=== PATIENT | female | born 1980 | race Caucasian/White ===

== ENCOUNTER → 2016-07-27 | Outpatient (CLI) | payer BC | LOC: MW.CHRC 16:18 | PROVIDERS: ATTEND Family Medicine | DX: R42 Dizziness and giddiness (principal) | CPT/HCPCS: 36415; 82607 ==

== ENCOUNTER 2017-04-26 08:12 | Day surgery (SDC) | payer BC ==
--- NOTE | 2017-04-26 08:55 | PCM.PREANE ---
Preanesthetic Assessment - Anesthesia/Transfusion/Family Hx Anesthesia History: Prior Anesthesia Without Reaction Family History of Anesthesia Reaction: No Transfusion History: No Prior Transfusion(s) Intubation History: Unknown - Review of Systems General: No Symptoms Pulmonary: No Symptoms Cardiovascular: No Symptoms Gastrointestinal: No Symptoms Neurological: No Symptoms Other: Reports: None - Physical Assessment O2 Sat by Pulse Oximetry: 96 Respiratory Rate: 16 Vital Signs: Last Vital Signs Temp 36.0 C 04/26/17 08:51 Pulse 86 04/26/17 08:51 Resp 16 04/26/17 08:51 BP 113/74 04/26/17 08:51 Pulse Ox 96 04/26/17 08:51 Height: 1.6 m Weight: 53.977 kg ASA Class: 1 Mental Status: Alert & Oriented x3 Airway Class: Mallampati = 1 Dentition: Reports: Normal Dentition Thyro-Mental Finger Breadths: 3 Mouth Opening Finger Breadths: 3 ROM/Head Extension: Full Lungs: Clear to Auscultation, Normal Respiratory Effort Cardiovascular: Regular Rate, Regular Rhythm - Lab Values: Laboratory Last Values Urine HCG, Qual NEGATIVE (NEGATIVE) 04/26/17 08:13 - Allergies Allergies/Adverse Reactions: Allergies Allergy/AdvReac Type Severity Reaction Status Date / Time No Known Allergies Allergy Verified 04/23/17 11:07 - Blood Blood Available: No - Anesthesia Plan Pre-Op Medication Ordered: None - Acknowledgements Anesthesia Type Planned: MAC (possible general anesthesia ) Pt an Appropriate Candidate for the Planned Anesthesia: Yes Alternatives and Risks of Anesthesia Discussed w Pt/Guardian: Yes Pt/Guardian Understands and Agrees with Anesthesia Plan: Yes PreAnesthesia Questionnaire HEENT History: Reports: None Other HEENT History: wears glasses Cardiovascular History: Reports: None Respiratory History: Reports: None Gastrointestinal History: Reports: None Genitourinary History: Reports: None 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: , 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 Neurological History: Reports: Other (See Below) Other Neuro History: hx of motion sickness - Infectious Disease History Infectious Disease History: Reports: Chicken Pox, Measles - Past Surgical History Head Surgeries/Procedures: Reports: None Female Surgical History: Reports: Breast Implant - SUBSTANCE USE Smoking Status *Q: Never Smoker Tobacco Use Within Last Twelve Months: No Second Hand Smoke Exposure: No Recreational Drug Use History: No - HOME MEDS Home Medications: Home Meds Vit W-Ca,Fe,FA(<1 mg) [ Vitamins] 1 tab PO DAILY 04/23/17 [ History] - CURRENT (IN HOUSE) MEDS Current Meds: Current Medications Cefazolin Sodium/Dextrose 1 gm (/ Premix) 50 mls @ 100 mls/hr IV ONETIME ONE Stop: 04/26/17 09:29 Lactated Ringer's (Ringers, Lactated) 1,000 mls @ 125 mls/hr IV ASDIRECTED [facility] Last Admin: 04/26/17 08:49 Dose: 125 mls/hr
[2017-04-26] MEDS ORDERED: ceFAZolin 1 GM in Premix Bag 1 BAG IV ONE (09:00)
[2017-04-26] MEDS ORDERED: Propofol 200 MG/20 ML SDV ONE ×2 (09:08→10:05)
[2017-04-26] MEDS ORDERED: Midazolam 1 MG/ML 2 ML SDV ONE (09:08)
[2017-04-26] MEDS ORDERED: fentaNYL 100 MCG/2 ML SDV ONE (09:08)
[2017-04-26] MEDS ORDERED: Ondansetron 4 MG/2 ML SDV ONE (09:08)
[2017-04-26] MEDS ORDERED: Lidocaine 2% 5 ML SDV ONE (09:08)
[2017-04-26] MEDS ORDERED: Bupivacaine 0.5% 10 ML SDV ONE (09:21)
[2017-04-26] MEDS ORDERED: Scopolamine 1.5 MG Transdermal Patch TRDERM PRN (09:21)
[2017-04-26] MEDS ORDERED: Lactated Ringers 1,000 ML IV SCH (09:30)
[2017-04-26] MEDS ORDERED: Lidocaine 1% 20 ML MDV ONE (09:37)
[2017-04-26] MEDS ORDERED: fentaNYL 100 MCG/2 ML SDV IVPUSH PRN (09:53)
--- NOTE | 2017-04-26 10:09 | PN ---
PREOPERATIVE PROGRESS NOTE. SURGERY DATE: April 26, 2017. SURGEON: Radames Oliver DPM. PREOPERATIVE DIAGNOSIS: Cyst, right foot. PLANNED PROCEDURE: Excision of cyst, right foot. Consent is signed and in the chart. ANESTHESIA: MAC with local. The patient confirms n.p.o. since midnight. History and physical completed by Dr. Red with no contraindications to surgery. PAST MEDICAL HISTORY: No allergies. Denies any medical problems. SURGICAL HISTORY: History of breast surgery for enlargement. ACTIVE PROBLEMS: Blurred vision right eye, chronic fatigue, dizziness, dysuria, elevated vitamin B12 level, hair loss, hypotension, history of miscarriage, strep pharyngitis, unilateral headache, urinary tract infection and yeast vaginitis. LABS: White blood cell 8.55, red blood cell 4.62, hemoglobin 14.7, hematocrit 41.7, platelets 240. Sodium 137, potassium 4.2, chloride 103, CO2 was 24, random glucose 88, BUN 20, creatinine 0.8, calcium 9.6. The patient presents for excision of cyst surgery today. No contraindications to surgery noted. No guarantees given or implied. GENNY / MACO /[id number] MTDSapphire
[2017-04-26] MEDS ORDERED: Ketorolac 30 MG/ML SDV ONE (10:13)
[2017-04-26] MEDS ORDERED: Acetaminophen/HYDROcodone 325-5 MG Tab PO PRN (11:13)
--- NOTE | 2017-04-26 11:18 | PCM.POSTAN ---
POST ANESTHESIA ASSESSMENT - MENTAL STATUS Mental Status: Alert, Oriented - RESPIRATORY Respiratory Status: Respiratory Rate WNL, Airway Patent, O2 Saturation Stable - CARDIOVASCULAR CV Status: Pulse Rate WNL, Blood Pressure Stable - GASTROINTESTINAL GI Status: No Symptoms - PAIN Pain Score: 0 - POST OP HYDRATION Hydration Status: Adequate & Stable
--- NOTE | 2017-04-26 11:19 | PCM.OPNOTE ---
- General Post-Op/Procedure Note Date of Surgery/Procedure: 04/26/17 Operative Procedure(s): excision of cyst right foot Findings: consistent with diagnosis Pre Op Diagnosis: cyst right foot Post-Op Diagnosis: cyst right foot Anesthesia Technique: Local, MAC Primary Surgeon: Radames Oliver Pathology: cyst EBL in mLs: 2 Complications: none Condition: Good Free Text/Narrative:: materials: 4-0 vicryl, 5-0 monocryl injectables: 10 ml of 1:1 mixture of 0.5% marcaine and 1% lidocaine
[2017-04-26 14:00] VITALS: BP 107/66
--- NOTE | 2017-04-26 22:33 | OR ---
SURGEON: Radames Oliver DPM DATE OF PROCEDURE: 04/26/2017 PREOPERATIVE DIAGNOSIS: Cyst on the right foot. POSTOPERATIVE DIAGNOSIS: Cyst on the right foot. PROCEDURE: Excision of cyst, right foot. ANESTHESIA: MAC plus local anesthesia consisting of a 1:1 mixture of 0.5% Marcaine plain mixed with 1% lidocaine plain, 7 mL of which was injected prior to beginning of the procedure and the remaining 3 mL in the syringe was injected at the conclusion of the procedure. MATERIALS: 4-0 Vicryl and 5-0 Monocryl suture. INJECTABLES: As stated above, the remaining 3 mL of the 1:1 mixture of 0.5% Marcaine plain and 1% lidocaine plain was injected at the conclusion of the procedure. HEMOSTASIS: Above-ankle pneumatic tourniquet inflated to a pressure of 250 mmHg. COMPLICATIONS: None seen. JUSTIFICATION FOR PROCEDURE: The patient is an established patient of [facility], who presented last month with complaint of a cyst which had quickly appeared on her right foot just medial to the extensor digitorum longus tendon over the first metatarsal dorsal medial aspect and just proximal to the first metatarsal head. The cyst had quickly enlarged according to the patient and was big enough that it starting to cause pain in all her shoes. I sent the patient for an ultrasound to better evaluate the cyst and determine the nature of this mass whether it was likely to be a cyst or lipoma or other pathology, and the results of the ultrasound indicated that this is likely a ganglion or possibly a synovial cyst. Due to the high rate of recurrence of such cysts, the patient after discussing the options of aspirating the cyst in the office versus surgically removing it in the operating room, did elect for surgical removal. The patient presents today for this excision of the cyst and all patient questions have been answered. No guarantees expressed or implied. PROCEDURE IN DETAIL: Excision of cyst, right foot: The patient identified by her name, was brought to the operating room, and placed on the operating table in a supine position and after anesthesia had been induced, the pneumatic above-ankle tourniquet was inflated following an Esmarch bandage exsanguination of the right lower extremity which followed marking of the site with a marking pen. A curvilinear incision was made on the dorsomedial aspect of the right foot over the first metatarsal just proximal to the first metatarsal head with the center of the incision being the most prominent protruding portion of the mass to be excised. The incision was deepened with sharp and blunt dissection through the subcutaneous layers and the cyst readily exposed itself at that point. Care was taken to cut, clamp, and/or ligate or retract away any small neurovascular structures. The cyst was noted to be medial to the extensor hallucis longus tendon and upon further dissection, it appeared to be adhered to a somewhat common anomaly present in this area of the foot, that being a split from the extensor hallucis longus tendon and almost the extensor hallucis capsularis tendon. The cyst was undermined with blunt and sharp dissection and was excised in toto and sent to Pathology for examination. The distal end of the sac of the cyst did rupture at the very end of its removal. However, the cyst was able to be removed essentially intact. The area was flushed with copious amounts of normal sterile saline and re-inspected and I determined that the cyst had been entirely removed. The area was then flushed again and dabbed dry in preparation for layered soft tissue closure. The deep and subcutaneous tissues were re- approximated using 4-0 Vicryl suture, and the superficial skin was re- approximated utilizing a running subcuticular stitch with 5-0 Monocryl suture. The ends of the Monocryl were fastened with Steri-Strips. The area was then covered with Betadine-soaked Xeroform gauze following injection of the remaining 3 mL of 0.5% Marcaine plain mixed 1:1 mixture with 1% lidocaine plain. A 4x4 fluff gauze was then affixed followed by Kerlix roll, and the bandaging was secured with an Mao bandage. The patient tolerated the procedure and the anesthesia well. Tourniquet was deflated. Bandages were applied. The tourniquet time was 39 minutes. There was a prompt hyperemic response to all digits of the right foot upon deflation of the tourniquet. Following this, the patient was transported from the operating room to the recovery room and after a brief stay, the patient was discharged home with written and verbal instructions for with minimizing weightbearing to the right foot, keeping the dressings clean and dry, use of the prescribed Bath as necessary for pain, and recommended follow up on Saturday in my office. The patient also maintains my cellphone in the event that any concerns arise at any time. GENNY DEWEY /[id number] SEVERO
== END 2017-04-26 12:40 | disposition home or self-care (01) ==
LOC: MW.SDS 08:12
PROVIDERS: ATTEND Podiatrist Foot & Ankle Surgery
DX: M67.471 Ganglion, right ankle and foot (principal); R53.82 Chronic fatigue, unspecified; I95.9 Hypotension, unspecified
CPT/HCPCS: 28090; 81025; 88304; A9270; J0690; J1885; J2250; J2405; J3010; J7120; 00400; J2704

== ENCOUNTER 2017-11-28 13:57 | Emergency (ER) | payer BC ==
[2017-11-28] MEDS ORDERED: Sodium Chloride 0.9% 1,000 ML IV ONE (14:41)
[2017-11-28] MEDS ORDERED: Ketorolac 30 MG/ML SDV IVPUSH ONE (14:41)
[2017-11-28] MEDS ORDERED: Sodium Chloride 0.9% 2.5 ML Syringe FLUSH PRN (14:41)
[2017-11-28] MEDS ORDERED: Sodium Chloride 0.9% 10 ML Syringe FLUSH PRN (14:41)
[2017-11-28] MEDS ORDERED: Ondansetron 4 MG/2 ML SDV IVPUSH ONE (14:42)
--- NOTE | 2017-11-28 14:57 | EDM.PDOC ---
ED HPI GENERAL MEDICAL PROBLEM - General Chief Complaint: Headache Stated Complaint: MIGRAINE Time Seen by Provider: 11/28/17 14:31 Source of Information: Reports: Patient History Limitations: Reports: No Limitations - History of Present Illness INITIAL COMMENTS - FREE TEXT/NARRATIVE: HISTORY AND PHYSICAL: History of present illness: [Lamar is a 37-year-old female here with complaint of migraine. She reports she developed a headache this morning, tried going back to bed but headache just getting worse. Tylenol and aleve not helping. She has light and smell sensitivity. She has been nauseous, vomited once this morning. She denies any injuries, fevers, chills, change in vision. She reports a history of migraines as a child and once when she was . ] Review of systems: As per history of present illness and below otherwise all systems reviewed and negative. Past medical history: As per history of present illness and as reviewed below otherwise noncontributory. Surgical history: As per history of present illness and as reviewed below otherwise noncontributory. Social history: No reported history of drug or alcohol abuse. Family history: As per history of present illness and as reviewed below otherwise noncontributory. Physical exam: HEENT: Atraumatic, normocephalic, pupils reactive, negative for conjunctival pallor or scleral icterus, mucous membranes moist, throat clear, neck supple, nontender, trachea midline. Lungs: Clear to auscultation, breath sounds equal bilaterally, chest nontender. Heart: S1S2, regular, negative for clicks, rubs, or JVD. Abdomen: Soft, nondistended, nontender. Negative for masses or hepatosplenomegaly. Negative for costovertebral tenderness. Pelvis: Stable nontender. Genitourinary: Deferred. Rectal: Deferred. Extremities: Atraumatic, negative for cords or calf pain. Neurovascular unremarkable. Neuro: Awake, alert, oriented. Cranial nerves II through XII unremarkable. Cerebellum unremarkable. Motor and sensory unremarkable throughout. Exam nonfocal. Notes: Patient reports improvement in headache from 8/10 to 0/10 after fluids. Diagnostics: [] Therapeutics: [1L Normal Saline 30mg IV Toradol 4mg IV Zofran] Impression: [Migraine] Plan: [#1 Drink plenty of fluids and take tylenol or motrin as needed #2 Follow up with PCP #3 Return to ED as needed as discussed] Definitive disposition and diagnosis as appropriate pending reevaluation and review of above. Head Pain Score (Numeric/FACES): 8 - Related Data Allergies Allergy/AdvReac Type Severity Reaction Status Date / Time No Known Allergies Allergy Verified 11/28/17 14:34 Home Meds: Home Meds . 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 Neurological History: Reports: Other (See Below) Other Neuro History: hx of motion sickness - Infectious Disease History Infectious Disease History: Reports: None - Past Surgical History Head Surgeries/Procedures: Reports: None Female Surgical History: Reports: Breast Implant Social & Family History - Family History Family Medical History: Noncontributory HEENT: Reports: Impaired Vision OBGYN: Reports: Oncologic: Reports: Breast, Skin - Tobacco Use Smoking Status *Q: Never Smoker - Caffeine Use Caffeine Use: Reports: Coffee, Soda - Recreational Drug Use Recreational Drug Use: No ED ROS GENERAL - Review of Systems Review Of Systems: ROS reveals no pertinent complaints other than HPI. - Physical Exam Exam: See Below (see dictation) Course - Vital Signs Last Recorded V/S: Last Vital Signs Temp 36.6 C 11/28/17 14:35 Pulse 88 11/28/17 14:35 Resp 18 11/28/17 14:35 BP 127/78 11/28/17 14:35 Pulse Ox 97 11/28/17 14:35 - Orders/Labs/Meds Orders: Active Orders 24 hr Category Date Time Status Sodium Chloride 0.9% [Saline Flush] Med 11/28/17 14:41 Active 10 ml FLUSH ASDIRECTED PRN Sodium Chloride 0.9% [Saline Flush] Med 11/28/17 14:41 Active 2.5 ml FLUSH ASDIRECTED PRN Saline Lock Insert [OM.PC] Stat Oth 11/28/17 14:41 Ordered Medication Orders Sodium Chloride (Saline Flush) 10 ml FLUSH ASDIRECTED PRN PRN Reason: Keep Vein Open Sodium Chloride (Saline Flush) 2.5 ml FLUSH ASDIRECTED PRN PRN Reason: Keep Vein Open Meds: Medications Generic Name Dose Route Start Last Admin Trade Name Freq PRN Reason Stop Dose Admin Sodium Chloride 10 ml 11/28/17 14:41 Saline Flush FLUSH ASDIRECTED PRN Keep Vein Open Sodium Chloride 2.5 ml 11/28/17 14:41 Saline Flush FLUSH ASDIRECTED PRN Keep Vein Open Discontinued Medications Generic Name Dose Route Start Last Admin Trade Name Freq PRN Reason Stop Dose Admin Sodium Chloride 1,000 mls @ 999 mls/hr 11/28/17 14:41 11/28/17 15:11 Normal Saline IV 11/28/17 15:41 999 mls/hr STAT ONE Administration Ketorolac Tromethamine 30 mg 11/28/17 14:41 11/28/17 15:11 Toradol IVPUSH 11/28/17 14:42 30 mg ONETIME ONE Administration Ondansetron HCl 4 mg 11/28/17 14:42 11/28/17 15:11 Zofran IVPUSH 11/28/17 14:43 4 mg ONETIME ONE Administration Departure - Departure Time of Disposition: 16:38 Disposition: Home, Self-Care 01 Condition: Good Clinical Impression: Migraine - Discharge Information Referrals: PCP,None [Primary Care Provider] - Forms: ED Department Discharge Additional Instructions: The following information is given to patients seen in the emergency department who are being discharged to home. This information is to outline your options for follow-up care. We provide all patients seen in our emergency department with a follow-up referral. The need for follow-up, as well as the timing and circumstances, are variable depending upon the specifics of your emergency department visit. If you don't have a primary care physician on staff, we will provide you with a referral. We always advise you to contact your personal physician following an emergency department visit to inform them of the circumstance of the visit and for follow-up with them and/or the need for any referrals to a consulting specialist. The emergency department will also refer you to a specialist when appropriate. This referral assures that you have the opportunity for follow-up care with a specialist. All of these measure are taken in an effort to provide you with optimal care, which includes your follow-up. Under all circumstances we always encourage you to contact your private physician who remains a resource for coordinating your care. When calling for follow-up care, please make the office aware that this follow-up is from your recent emergency room visit. If for any reason you are refused follow-up, please contact the [facility] Emergency Department at and asked to speak to the emergency department charge nurse. [facility] [address] [place] [address] [facility] [address] [place] [id number] #1 Drink plenty of fluids and take tylenol or motrin as needed #2 Follow up with PCP #3 Return to ED as needed as discussed - My Orders Last 24 Hours: My Active Orders 11/28/17 14:41 Sodium Chloride 0.9% [Saline Flush] 10 ml FLUSH ASDIRECTED PRN Sodium Chloride 0.9% [Saline Flush] 2.5 ml FLUSH ASDIRECTED PRN Saline Lock Insert [OM.PC] Stat - Assessment/Plan Last 24 Hours: My Active Orders 11/28/17 14:41 Sodium Chloride 0.9% [Saline Flush] 10 ml FLUSH ASDIRECTED PRN Sodium Chloride 0.9% [Saline Flush] 2.5 ml FLUSH ASDIRECTED PRN Saline Lock Insert [OM.PC] Stat
[2017-11-28 17:05] VITALS: BP 108/63
== END 2017-11-28 17:00 | disposition home or self-care (01) ==
LOC: MW.ED 13:57
DX: G43.909 Migraine, unspecified, not intractable, without status migrainosus (principal)
CPT/HCPCS: 96361; 96374; 96375; 99284; J1885; J2405; J7040; 99283

== ENCOUNTER 2019-02-26 05:42 | Inpatient (IN) | payer BC ==
[2019-02-26] MEDS ORDERED: Methylergonovine 0.2 MG/1 ML Amp IM PRN (05:52)
[2019-02-26] MEDS ORDERED: Butorphanol 1 MG/ML SDV IVPUSH PRN (05:52)
[2019-02-26] MEDS ORDERED: Tranexamic Acid 1,000 MG in Sodium Chloride 0.9% 100 ML IV PRN (05:52)
[2019-02-26] MEDS ORDERED: Sodium Chloride 0.9% 2.5 ML Syringe FLUSH PRN (05:52)
[2019-02-26] MEDS ORDERED: Water For Irrigation,Sterile 1,000 ML Container IRR PRN (05:52)
[2019-02-26] MEDS ORDERED: Sodium Chloride 0.9% 10 ML Syringe FLUSH PRN (05:52)
[2019-02-26] MEDS ORDERED: Carboprost Tromethamine 250 MCG/1 ML Amp IM PRN (05:52)
[2019-02-26] MEDS ORDERED: Misoprostol 200 MCG Tab PO PRN (05:52)
[2019-02-26] MEDS ORDERED: Nalbuphine 10 MG/1 ML Vial IVPUSH PRN (05:52)
[2019-02-26] MEDS ORDERED: Sodium Chloride 0.9% 10 ML SDV IV PRN (05:52)
[2019-02-26] MEDS ORDERED: Lidocaine 1% 50 ML MDV INJECT PRN (05:52)
[2019-02-26] MEDS ORDERED: Oxytocin/0.9 % Sodium Chloride 30 UNIT/500 ML BAG ONE (05:55)
[2019-02-26] MEDS ORDERED: Oxytocin 10 Units/1 ML SDV ONE (05:55)
[2019-02-26] MEDS ORDERED: Lactated Ringers 1,000 ML IV SCH (06:00)
[2019-02-26] MEDS ORDERED: Oxytocin/0.9 % Sodium Chloride 30 UNIT/500 ML BAG IV SCH (06:00)
[2019-02-26] MEDS ORDERED: Acetaminophen 500 MG Tab PO PRN ×2 (08:20)
[2019-02-26] MEDS ORDERED: Docusate Sodium 100 MG Cap PO PRN (08:20)
[2019-02-26] MEDS ORDERED: Bisacodyl 10 MG Supp RECTAL PRN (08:20)
[2019-02-26] MEDS ORDERED: Ibuprofen 800 MG Tab PO PRN (08:20)
[2019-02-26] MEDS ORDERED: Lanolin 100% Cream 7 GM Tube TOP PRN (08:20)
[2019-02-26] MEDS ORDERED: oxyCODONE 5 MG Tab PO PRN (08:20)
[2019-02-26] MEDS ORDERED: Benzocaine/Menthol 20%-0.5% Spray 78 GM Cannister TOP PRN (08:20)
[2019-02-26] MEDS ORDERED: Ibuprofen 400 MG Tab PO PRN (08:20)
[2019-02-26] MEDS ORDERED: Witch Hazel Medicated Pads 40/Jar TOP PRN (08:20)
--- NOTE | 2019-02-26 08:23 | PCM.DEL ---
L & D Note - General Info Date of Service: 02/26/19 - Delivery Note Labor: Spontaneous Delivery Outcome: Livebirth Presentation: Left Occiput Anterior (ISA) Nuchal Cord: None Anesthetic: Lidocaine (Xylocaine) 1% Plain Amniotic Fluid Description: Clear Episiotomy Type: None Laceration: 1st Degree Suture type: Other (monocyrl ) Suture size: 2-0 Placenta: Spontaneous Cord: 3 Vessels Estimated Blood Loss: 200 Resuscitation Needed: No Score 1 min: 8 Score 5 min: 9 Delivery Comments (Free Text/Narrative):: Live male delivered at 616am , 8/9 weight pending - General Info Date of Service: 02/26/19 - Patient Data Lab Results Last 24 Hours: Laboratory Results - last 24 hr 02/26/19 02/26/19 Range/Units 06:00 06:00 WBC 8.92 (4.0-11.0) K/uL RBC 3.84 L (4.30-5.90) M/uL Hgb 12.5 (12.0-16.0) g/dL Hct 35.7 L (36.0-46.0) % MCV 93.0 (80.0-98.0) fL MCH 32.6 H (27.0-32.0) pg MCHC 35.0 (31.0-37.0) g/dL RDW Std Deviation 46.3 (28.0-62.0) fl RDW Coeff of Juan Luis 14 (11.0-15.0) % Plt Count 175 (150-400) K/uL MPV 9.90 (7.40-12.00) fL Nucleated RBC % 0.0 /100WBC Nucleated RBCs # 0 K/uL Blood Type B POSITIVE Antibody Screen NEGATIVE Med Orders - Current: Current Medications Butorphanol Tartrate (Stadol) 1 mg IVPUSH Q1H PRN PRN Reason: Pain Carboprost Tromethamine (Hemabate Ds) 250 mcg IM ASDIRECTED PRN PRN Reason: Post Hemorrhage Lactated Ringer's (Ringers, Lactated) 1,000 mls @ 150 mls/hr IV ASDIRECTED TEGAN Oxytocin/Sodium Chloride (Oxytocin 30 Unit/500 Ml-Ns) 30 unit in 500 mls @ 555 mls/hr IV TITRATE TEGAN Tranexamic Acid 1,000 mg/ (Sodium Chloride) 110 mls @ 660 mls/hr IV ONETIME PRN PRN Reason: Bleeding Lidocaine HCl (Xylocaine 1%) 50 ml INJECT ONETIME PRN PRN Reason: Laceration repair Last Admin: 02/26/19 06:48 Dose: 50 ml Methylergonovine Maleate (Methergine) 0.2 mg IM ASDIRECTED PRN PRN Reason: Post Hemorrhage Misoprostol (Cytotec) 200 mcg PO ONETIME PRN PRN Reason: Post Hemorrhage Nalbuphine HCl (Nubain) 10 mg IVPUSH Q1H PRN PRN Reason: Pain (severe 7-10) Sodium Chloride (Saline Flush) 10 ml FLUSH ASDIRECTED PRN PRN Reason: Keep Vein Open Sodium Chloride (Saline Flush) 2.5 ml FLUSH ASDIRECTED PRN PRN Reason: Keep Vein Open Sodium Chloride (Normal Saline) 10 ml IV ASDIRECTED PRN PRN Reason: IV Use Sterile Water (Sterile Water For Irrigation) 1,000 ml IRR ASDIRECTED PRN PRN Reason: delivery Last Admin: 02/26/19 06:48 Dose: 1,000 ml Discontinued Medications Oxytocin/Sodium Chloride (Oxytocin 30 Unit/500 Ml-Ns) Confirm Administered Dose 30 unit in 500 mls @ as directed .ROUTE .STK-MED ONE Stop: 02/26/19 05:56 Oxytocin (Pitocin) Confirm Administered Dose 20 unit .ROUTE .STK-MED ONE Stop: 02/26/19 05:56 - Problem List & Annotations (1) Vaginal delivery SNOMED Code(s): 067078536 Code(s): O80 - ENCOUNTER FOR FULL-TERM UNCOMPLICATED DELIVERY Status: Acute Current Visit: No - Problem List Review Problem List Initiated/Reviewed/Updated: Yes - My Orders Last 24 Hours: My Active Orders 02/26/19 05:52 Patient Status [ADT] Routine May Shower [RC] ASDIRECTED Notify Provider [RC] PRN Up ad Eliana [RC] ASDIRECTED Vital Signs [RC] PER UNIT ROUTINE Butorphanol [Stadol] 1 mg IVPUSH Q1H PRN Carboprost Tromethamine [Hemabate DS] 250 mcg IM ASDIRECTED PRN Lidocaine 1% [Xylocaine 1%] 50 ml INJECT ONETIME PRN Methylergonovine [Methergine] 0.2 mg IM ASDIRECTED PRN Nalbuphine [Nubain] 10 mg IVPUSH Q1H PRN Sodium Chloride 0.9% [Normal Saline] 10 ml IV ASDIRECTED PRN Sodium Chloride 0.9% [Saline Flush] 10 ml FLUSH ASDIRECTED PRN Sodium Chloride 0.9% [Saline Flush] 2.5 ml FLUSH ASDIRECTED PRN Tranexamic Acid [Cyklokapron] 1,000 mg Sodium Chloride 0.9% [Normal Saline] 100 ml IV ONETIME Water For Irrigation,Sterile [Sterile Water for Irrigation] 1,000 ml IRR ASDIRECTED PRN miSOPROStol [Cytotec] 200 mcg PO ONETIME PRN Scalp Electrode [WOMSER] Per Unit Routine Peripheral IV Insertion Adult [OM.PC] Routine 02/26/19 06:00 Lactated Ringers [Ringers, Lactated] 1,000 ml IV ASDIRECTED Oxytocin/0.9 % Sodium Chloride [Oxytocin 30 Unit/500 ML-NS] 30 unit in 500 ml IV TITRATE 02/26/19 08:20 May Shower [RC] ASDIRECTED Up ad Eliana [RC] ASDIRECTED Vital Signs [RC] PER UNIT ROUTINE Acetaminophen [Tylenol Extra Strength] 1,000 mg PO Q4H PRN Acetaminophen [Tylenol Extra Strength] 500 mg PO Q4H PRN Benzocaine/Menthol [Dermoplast Pain Relief 20%-0.5% [place]] 78 gm TOP ASDIRECTED PRN Bisacodyl [Dulcolax] 10 mg RECTAL ONETIME PRN Docusate Sodium [Colace] 100 mg PO BID PRN Ibuprofen [Motrin] 400 mg PO Q4H PRN Ibuprofen [Motrin] 800 mg PO Q6H PRN Lanolin [Lansinoh HPA] See Dose Instructions TOP ASDIRECTED PRN Witch Rosette [Tucks] 1 pad TOP ASDIRECTED PRN oxyCODONE 5 mg PO Q2H PRN Assess Lochia [WOMSER] Per Unit Routine Assess Uterine Involution [WOMSER] Per Unit Routine Peripheral IV Discontinue [OM.PC] Routine 02/27/19 05:11 HEMOGLOBIN/HEMATOCRIT,HH [HEME] Timed
--- NOTE | 2019-02-26 15:27 | OR ---
SURGEON: VILMA MUNIZ DATE OF PROCEDURE: 02/26/2019 PREOPERATIVE DIAGNOSIS: A 38-year-old, G5, P 2-0-2-2, at 39 weeks 3 days in second stage of labor. POSTOPERATIVE DIAGNOSIS: A 38-year-old, G5, P 2-0-2-2, at 39 weeks 3 days in second stage of labor. PROCEDURE: Normal spontaneous vaginal delivery and repair of first-degree vaginal laceration. ESTIMATED BLOOD LOSS: 200. ANESTHESIA: Local, 1% lidocaine infiltrated in the incision. NOTES AND FINDINGS: A live male delivered at 6:16 a.m. score was 8 and 9. Weight pending. BRIEF HISTORY: She is a 38-year-old, G5, P 2-0-2-2, at 39 weeks 3 days, who came in complaining of contraction and leakage of fluid. She was examined and found to be fully dilated. So with fully dilated, she was encouraged to push. With good pushing effort, she delivered the head, subsequently by the anterior and posterior shoulder. The body of the was delivered. Delayed cord clamping was observed. Placenta was delivered via controlled cord traction. Perineum inspected and noted to have first-degree laceration, which was repaired. Cord blood gases were obtained. All instrument and pad counts were correct x2. The patient tolerated the procedure well and left the Labor and Delivery in stable condition. MARIELLE DEWEY /[id number]
--- NOTE | 2019-02-27 09:38 | PCM.PNPP ---
- General Info Date of Service: 02/27/19 Functional Status: Reports: Pain Controlled, Tolerating Diet, Ambulating, Urinating - Review of Systems General: Denies: Weakness Pulmonary: Denies: Shortness of Breath Cardiovascular: Denies: Chest Pain, Palpitations, Lightheadedness Gastrointestinal: Denies: Abdominal Pain, Nausea, Vomiting Genitourinary: Denies: Flank Pain Musculoskeletal: Reports: No Symptoms Skin: Reports: No Symptoms Neurological: Reports: No Symptoms Psychiatric: Reports: No Symptoms - General Info Date of Service: 02/27/19 - Patient Data Vital Signs - Most Recent: Last Vital Signs Temp 36.3 C 02/27/19 08:15 Pulse 98 02/27/19 07:30 Resp 18 02/27/19 07:30 BP 113/62 02/27/19 07:30 Pulse Ox 96 02/27/19 07:30 Weight - Most Recent: 59.874 kg Lab Results - Last 24 Hours: Laboratory Results - last 24 hr 02/27/19 Range/Units 05:56 Hgb 10.6 L (12.0-16.0) g/dL Hct 31.9 L (36.0-46.0) % Med Orders - Current: Current Medications Acetaminophen (Tylenol Extra Strength) 500 mg PO Q4H PRN PRN Reason: Pain Acetaminophen (Tylenol Extra Strength) 1,000 mg PO Q4H PRN PRN Reason: Pain Benzocaine/Menthol (Dermoplast Pain Relief 20%-0.5% [place]) 78 gm TOP ASDIRECTED PRN PRN Reason: Perineal Comfort Measure Bisacodyl (Dulcolax) 10 mg RECTAL ONETIME PRN PRN Reason: Constipation Butorphanol Tartrate (Stadol) 1 mg IVPUSH Q1H PRN PRN Reason: Pain Carboprost Tromethamine (Hemabate Ds) 250 mcg IM ASDIRECTED PRN PRN Reason: Post Hemorrhage Docusate Sodium (Colace) 100 mg PO BID PRN PRN Reason: Constipation Emollient Ointment (Lansinoh Hpa) 0 gm TOP ASDIRECTED PRN PRN Reason: Sore Nipples Lactated Ringer's (Ringers, Lactated) 1,000 mls @ 150 mls/hr IV ASDIRECTED TEGAN Oxytocin/Sodium Chloride (Oxytocin 30 Unit/500 Ml-Ns) 30 unit in 500 mls @ 555 mls/hr IV TITRATE TEGAN Tranexamic Acid 1,000 mg/ (Sodium Chloride) 110 mls @ 660 mls/hr IV ONETIME PRN PRN Reason: Bleeding Ibuprofen (Motrin) 400 mg PO Q4H PRN PRN Reason: Pain Ibuprofen (Motrin) 800 mg PO Q6H PRN PRN Reason: Pain Lidocaine HCl (Xylocaine 1%) 50 ml INJECT ONETIME PRN PRN Reason: Laceration repair Last Admin: 02/26/19 06:48 Dose: 50 ml Methylergonovine Maleate (Methergine) 0.2 mg IM ASDIRECTED PRN PRN Reason: Post Hemorrhage Misoprostol (Cytotec) 200 mcg PO ONETIME PRN PRN Reason: Post Hemorrhage Nalbuphine HCl (Nubain) 10 mg IVPUSH Q1H PRN PRN Reason: Pain (severe 7-10) Oxycodone HCl (Oxycodone) 5 mg PO Q2H PRN PRN Reason: Pain Sodium Chloride (Saline Flush) 10 ml FLUSH ASDIRECTED PRN PRN Reason: Keep Vein Open Sodium Chloride (Saline Flush) 2.5 ml FLUSH ASDIRECTED PRN PRN Reason: Keep Vein Open Sodium Chloride (Normal Saline) 10 ml IV ASDIRECTED PRN PRN Reason: IV Use Sterile Water (Sterile Water For Irrigation) 1,000 ml IRR ASDIRECTED PRN PRN Reason: delivery Last Admin: 02/26/19 06:48 Dose: 1,000 ml Witch Rosette (Tucks) 1 pad TOP ASDIRECTED PRN PRN Reason: comfort care Discontinued Medications Oxytocin/Sodium Chloride (Oxytocin 30 Unit/500 Ml-Ns) Confirm Administered Dose 30 unit in 500 mls @ as directed .ROUTE .STK-MED ONE Stop: 02/26/19 05:56 Oxytocin (Pitocin) Confirm Administered Dose 20 unit .ROUTE .STK-MED ONE Stop: 02/26/19 05:56 - Infant Interaction Support Person: - Recovery Exam Fundal Tone: Firm Fundal Level: 2 Fingerbreadths Below Umbilicus Fundal Placement: Midline Lochia Amount: Small Lochia Color: Rubra/Red Perineum Description: Other (see below) Other Perinuem Description: 1st degree laceration Episiotomy/Laceration: Approximated Bladder Status: Voiding Urinary Elimination: Voided - Exam General: Alert, Oriented Neck: Supple Lungs: Normal Respiratory Effort Cardiovascular: Regular Rate, Regular Rhythm GI/Abdominal Exam: Soft, Non-Tender Extremities: Pedal Edema (trace). No: Geovanny's Sign Skin: Warm, Dry, Intact Neurological: No New Focal Deficit Psy/Mental Status: Alert, Normal Affect, Normal Mood - Problem List & Annotations (1) Vaginal delivery SNOMED Code(s): 941919347 Code(s): O80 - ENCOUNTER FOR FULL-TERM UNCOMPLICATED DELIVERY Status: Acute Current Visit: No - Problem List Review Problem List Initiated/Reviewed/Updated: Yes - Assessment Assessment:: PPD 1 status post - Plan Plan:: Doing well overall, patient would like to be discharged tomorrow. Discharge instructions reviewed. Continue cares.
--- NOTE | 2019-02-28 07:19 | PCM.PNPP ---
- General Info Date of Service: 02/28/19 Functional Status: Reports: Pain Controlled, Tolerating Diet, Ambulating - Review of Systems General: Reports: No Symptoms HEENT: Reports: No Symptoms Pulmonary: Reports: No Symptoms Cardiovascular: Reports: No Symptoms Gastrointestinal: Reports: No Symptoms Genitourinary: Reports: No Symptoms Musculoskeletal: Reports: No Symptoms Skin: Reports: No Symptoms Neurological: Reports: No Symptoms Psychiatric: Reports: No Symptoms - Patient Data Vital Signs - Most Recent: Last Vital Signs Temp 36.1 C 02/28/19 03:50 Pulse 101 H 02/28/19 03:50 Resp 16 02/28/19 03:50 BP 118/77 02/28/19 03:50 Pulse Ox 97 02/28/19 03:50 Weight - Most Recent: 59.874 kg I&O - Last 24 Hours: Intake & Output 02/27/19 02/28/19 02/28/19 22:59 06:59 14:59 Intake Total 440 Output Total 800 Balance -360 Med Orders - Current: Current Medications Acetaminophen (Tylenol Extra Strength) 500 mg PO Q4H PRN PRN Reason: Pain Acetaminophen (Tylenol Extra Strength) 1,000 mg PO Q4H PRN PRN Reason: Pain Benzocaine/Menthol (Dermoplast Pain Relief 20%-0.5% [place]) 78 gm TOP ASDIRECTED PRN PRN Reason: Perineal Comfort Measure Bisacodyl (Dulcolax) 10 mg RECTAL ONETIME PRN PRN Reason: Constipation Butorphanol Tartrate (Stadol) 1 mg IVPUSH Q1H PRN PRN Reason: Pain Carboprost Tromethamine (Hemabate Ds) 250 mcg IM ASDIRECTED PRN PRN Reason: Post Hemorrhage Docusate Sodium (Colace) 100 mg PO BID PRN PRN Reason: Constipation Emollient Ointment (Lansinoh Hpa) 0 gm TOP ASDIRECTED PRN PRN Reason: Sore Nipples Lactated Ringer's (Ringers, Lactated) 1,000 mls @ 150 mls/hr IV ASDIRECTED TEGAN Oxytocin/Sodium Chloride (Oxytocin 30 Unit/500 Ml-Ns) 30 unit in 500 mls @ 555 mls/hr IV TITRATE TEGAN Tranexamic Acid 1,000 mg/ (Sodium Chloride) 110 mls @ 660 mls/hr IV ONETIME PRN PRN Reason: Bleeding Ibuprofen (Motrin) 400 mg PO Q4H PRN PRN Reason: Pain Ibuprofen (Motrin) 800 mg PO Q6H PRN PRN Reason: Pain Lidocaine HCl (Xylocaine 1%) 50 ml INJECT ONETIME PRN PRN Reason: Laceration repair Last Admin: 02/26/19 06:48 Dose: 50 ml Methylergonovine Maleate (Methergine) 0.2 mg IM ASDIRECTED PRN PRN Reason: Post Hemorrhage Misoprostol (Cytotec) 200 mcg PO ONETIME PRN PRN Reason: Post Hemorrhage Nalbuphine HCl (Nubain) 10 mg IVPUSH Q1H PRN PRN Reason: Pain (severe 7-10) Oxycodone HCl (Oxycodone) 5 mg PO Q2H PRN PRN Reason: Pain Sodium Chloride (Saline Flush) 10 ml FLUSH ASDIRECTED PRN PRN Reason: Keep Vein Open Sodium Chloride (Saline Flush) 2.5 ml FLUSH ASDIRECTED PRN PRN Reason: Keep Vein Open Sodium Chloride (Normal Saline) 10 ml IV ASDIRECTED PRN PRN Reason: IV Use Sterile Water (Sterile Water For Irrigation) 1,000 ml IRR ASDIRECTED PRN PRN Reason: delivery Last Admin: 02/26/19 06:48 Dose: 1,000 ml Witch Rosette (Tucks) 1 pad TOP ASDIRECTED PRN PRN Reason: comfort care Discontinued Medications Oxytocin/Sodium Chloride (Oxytocin 30 Unit/500 Ml-Ns) Confirm Administered Dose 30 unit in 500 mls @ as directed .ROUTE .STK-MED ONE Stop: 02/26/19 05:56 Oxytocin (Pitocin) Confirm Administered Dose 20 unit .ROUTE .STK-MED ONE Stop: 02/26/19 05:56 - Interaction Disposition, : in Room with Family Interaction: Holding Infant Infant Feeding: Breastfed Infant; Nursed Well Support Person: - Recovery Exam Fundal Tone: Firm Fundal Level: 3 Fingerbreadths Below Umbilicus Fundal Placement: Midline Lochia Amount: Scant Lochia Color: Rubra/Red Perineum Description: Other (see below) Other Perinuem Description: 1st degree laceration Episiotomy/Laceration: Approximated Bladder Status: Voiding Urinary Elimination: Voided - Exam General: Alert, Oriented HEENT: Pupils Equal Neck: Supple Lungs: Normal Respiratory Effort GI/Abdominal Exam: Soft, Non-Tender, No Organomegaly, No Distention Extremities: Normal Inspection, Non-Tender, No Pedal Edema Skin: Warm, Dry, Intact Neurological: No New Focal Deficit Psy/Mental Status: Alert, Normal Affect, Normal Mood - Problem List Review Problem List Initiated/Reviewed/Updated: Yes - My Orders Last 24 Hours: My Active Orders 02/28/19 07:17 Ready for Discharge [RC] PER UNIT ROUTINE - Assessment Assessment:: PPD 2 status post , stable, minimal lochia, would like to go home today. - Plan Plan:: Dismiss to home. Reviewed discharge instructions.
[2019-02-28 07:41] VITALS: BP 119/76; PULSE 98
== END 2019-02-28 12:42 | disposition home or self-care (01) | DRG 560 ==
LOC: MW.OBCHECK 05:42 → MW.OB 05:43 → MW.OBCHECK 05:52 → MW.OB 05:52 → OBSVTOIN 06:16 → MW.OB 11:52 → MW.MS 02-28 03:25
PROVIDERS: ADMIT Obstetrics & Gynecology; ATTEND Obstetrics & Gynecology
PROC: 10E0XZZ Delivery of Products of Conception, External Approach (ICD-10-PCS; principal; 2019-02-26)
PROC: 0HQ9XZZ Repair Perineum Skin, External Approach (ICD-10-PCS; 2019-02-26)
DX: O70.0 First degree perineal laceration during delivery (principal); Z3A.39 39 weeks gestation of pregnancy; Z37.0 Single live birth
CPT/HCPCS: 36415; 59025; 59409; 85014; 85018; 85027; 86850; 86900; 86901; A9270-GY; J2001

== ENCOUNTER 2024-12-10 07:47 | Day surgery (SDC) | payer BC ==
[~2024-12-10 07:47] MED LIST: Sodium Chloride 0.9% 10 ML Syringe FLUSH PRN; Sodium Chloride 0.9% 2.5 ML Syringe FLUSH PRN
[2024-12-10] MEDS: Lactated Ringers 1,000 ML IV SCH (08:15)
[2024-12-10] MEDS ORDERED: Propofol 200 MG/20 ML SDV ONE (09:02)
[2024-12-10] MEDS ORDERED: dexmedeTOMIDine HCl 200 MCG/2 ML SDV ONE (09:21)
[2024-12-10 09:56] VITALS: PULSE 76
[2024-12-10 10:13] VITALS: BP 102/66
== END 2024-12-10 10:40 | disposition home or self-care (01) ==
LOC: MW.SDS 07:47
PROVIDERS: ATTEND Surgery
DX: Z12.11 Encounter for screening for malignant neoplasm of colon (principal); D12.5 Benign neoplasm of sigmoid colon; K63.5 Polyp of colon; Z80.0 Family history of malignant neoplasm of digestive organs
CPT/HCPCS: 45380; 81025; J2704; J7120; 00811